=== PATIENT | female | born 2005 | race Caucasian/White ===

== ENCOUNTER 2025-02-24 21:12 | Emergency (ER) | payer OTHER, SELFPAY ==
[2025-02-24 21:16] VITALS: BP 163/92
--- NOTE | 2025-02-24 21:38 | ED.GENMED ---
History of Present Illness
General
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
Source: patient
Time Seen by Provider: 02/24/25 21:30
History of Present Illness
History of Present Illness:
19-year-old female presenting to the ER for evaluation for test of cure after being treated for chlamydia around 1 month ago. Patient asymptomatic now, notes that she will have intermittent pain with' her ovaries' when she has an orgasm. Patient
denies any current vaginal bleeding, vaginal discharge, vaginal irritation/itching, urinary symptoms or any other concerns. Patient reportedly completed the 7-day course of doxycycline.
Past History
Past History
ED Past Medical History: None
ED Past Surgical History: None
Social History
Tobacco: Non-smoker
Alcohol: None
Drug: None
Personal: Other (Engaged)
Living: with family
Review of Systems
Review of Systems
All Other Systems: ROS reviewed and negative except as documented in HPI and ROS
Phy Exam
Physical Exam
Physical Exam:
GENERAL: Alert , in no apparent distress
EYE: conjunctiva clear
Head: Normocephalic atraumatic
NECK: Supple,
ENT: mmm.
LUNGS: no acute respiratory distress
ABDOMEN: Soft, nontender, nondistended
NEUROLOGICAL: Alert and oriented
SKIN: Warm and dry, skin intact.
MUSCULOSKELETAL: well perfused.
PSYCH: Normal and appropriate interaction.
Scores
Heart Failure Risk
Heart Failure Risk Score: Not Applicable
Heart Score for Chest Pain Patients
STEMI patient?: Not applicable
Withdrawal Assessment of Alcohol
Withdrawal Assessment Completed?: Not applicable
Course
Orders/Labs/Results
Orders:
Orders
02/24/25 21:39
Test Result ONCE
02/24/25 21:44
Beta Hcg Urine Qualitative Screen [HCG, Urine Qualitative Screen] Urgent
Date Specimen was Collected: 02/24/25
Time Specimen was Collected: 21:41
Chlamydia/GC by PCR Urgent
KEYUR Source: Urine
Specimen Description:
Source:: URINE
Date Specimen was Collected: 02/24/25
Time Specimen was Collected: 21:41
Vital Signs
Initial and Last Documented VS:
Initial Vital Signs
Temp Pulse Resp BP Pulse Ox
98.7 F 100 15 163/92 98
02/24/25 21:16 02/24/25 21:16 02/24/25 21:16 02/24/25 21:16 02/24/25 21:16
Last Documented Vital Signs
Temp Pulse Resp BP Pulse Ox
98.7 F 100 15 163/92 98
02/24/25 21:16 02/24/25 21:16 02/24/25 21:16 02/24/25 21:16 02/24/25 21:16
MDM/Problems Addressed
Differential Diagnosis Includes:
Gonorrhea, chlamydia, other STI, no STI
MDM/Problems Addressed:
19-year-old female presented to the ER for evaluation of test of cure after being treated for chlamydia last month. Patient without symptoms. Will check urine for gonorrhea chlamydia. Patient is otherwise stable for discharge home. Aware of
return precautions to the ER. I did encourage close follow-up with [facility].
*Pulse Oximetry
Patient hypoxic: no
*Critical Care Note
Total Time (30-74mins, 75-104mins- exclusive of procedures): Not Applicable
ED Attending Note
-
Portions of this chart may have been created with voice recognition software.� Occasional wrong word or��sound alike� substitutions may have occurred due to the inherent limitations of voice recognition software.
Discharge Plan
Departure
Patient Disposition: Home (Routine Discharge)
Date of Disposition: 02/24/25
Time of Disposition: 21:38
Patient with high blood pressure during this ER visit?: No
Discharge Problem:
Screen for STD (sexually transmitted disease)
Instructions: Sexually transmitted infections - ED discharge instructions
Referrals:
NONE,* [Family Provider] -
Interventions
Interventions:
*Risk Screen - Suicide Last Done: 02/24/25 21:16
*General Assessment Last Done: 02/24/25 21:16
*Neglect/Abuse Screening Last Done: 02/24/25 21:16
*ED COVID-19 Vaccine History Last Done: 02/24/25 21:36
ED-Female Genitourinary Assessment Last Done: 02/24/25 21:36
Discharge Date and Time
Print Language: TELUGU
[2025-02-24 21:58] LABS: HCG, Urine Qualitative Screen Negative
== END 2025-02-24 22:02 | disposition home or self-care (01) ==
LOC: EMR 21:12
PROVIDERS: Physician Assistant Medical; EMERGENCY PHYSICIAN Student in an Organized Health Care Education/Training Program
DX: Z11.3 Encounter for screening for infections with a predominantly sexual mode of transmission (principal)
CPT/HCPCS: 99283; 81025; 87491; 87591

== ENCOUNTER 2025-05-01 14:37 | Emergency (ER) | payer OTHER, SELFPAY ==
[2025-05-01 14:51] VITALS: BP 133/78
[2025-05-01 15:35] LABS: Hematocrit 43.9 % (37.0-47.0); Hemoglobin 15.0 g/dL (12.0-16.0); Mean Corp Hgb Conc. 34.2 g/dL (33.0-37.0); Mean Corpuscular Volume 84.4 fL (81.0-99.0); Nucleated Red Blood Cells % 0 %; Platelet Count 423 10^3/uL (130-400); Red Cell Dist. Width 12.5 % (11.5-14.5)
[2025-05-01 15:44] LABS: HCG, Serum Qualitative Screen Negative
[2025-05-01 15:49] LABS: ALT (SGPT) 47 U/L (0-35); AST (SGOT) 31 U/L (14-36); Albumin 5.1 g/dl (3.5-5.0); Alkaline Phosphatase 88 U/L (38-126); Blood Urea Nitrogen 8 mg/dl (7-17); Calcium 10.3 mg/dl (8.4-10.2); Carbon Dioxide 24 mmol/L (22-30); Chloride 105 mmol/L (98-107); Glucose 107 mg/dl (70-99); Lipase 161 U/L (23-300); Potassium 4.3 mmol/L (3.5-5.1); Sodium 139 mmol/L (135-145); Total Protein 8.6 g/dl (6.3-8.2); eGFR > 60.00
--- NOTE | 2025-05-01 17:08 | ED.GENMED ---
History of Present Illness
<PERICO Huang - Last Filed: 05/01/25 18:12>
General
Chief Complaint: Abdominal Pain
Source: patient
Time Seen by Provider: 05/01/25 16:44
History of Present Illness
History of Present Illness:
Patient is a 19 y/o F with PMHx of anxiety who presents to ED from urgent care for diarrhea and lower abdominal pain x 1 month. Patient states she has had non bloody diarrhea at least once daily for the past month, with an increase in severity
today, with 5 bouts of diarrhea this morning. Patient describes diarrhea as green, and loose non watery or bloody. She has not taken any over the counter medications and has not been evaluated for this by another provider. Abdominal pain is rated
8/10, described as intermittent sharp pains that have been present for 1 month and differs from menstrual cramping. Patient admits to headache and nausea that began today. LMP 28 days ago, currently on mentrual cycle. Patient denies fever, weight
loss, weight gain, constipation, SOB, chest pain, dysuria, polyuria, myalgias or arthalgias.
Past History
<PERICO Huang - Last Filed: 05/01/25 18:12>
Past History
ED Past Medical History: None and Psychiatric (Anxiety)
ED Past Surgical History: None
Social History
Tobacco: Non-smoker
Alcohol: None
Drug: None
Personal: Other (Engaged)
Living: with family
Review of Systems
<PERICO Huang - Last Filed: 05/01/25 18:12>
Review of Systems
Allergies reviewed?: Yes
Other source history: family
Constitutional: Denies fever, weight gain, weight loss, fatigue or chills
Respiratory: Reports no symptoms
Cardiac: Reports no symptoms
ABD/GI: Reports abdominal pain (LLQ, RLQ), nausea and diarrhea; Denies vomiting, constipated, bloody stools or black stools
: Denies dysuria, frequency, urgency, dark urine or discharge
Musculoskeletal: Denies joint pain or muscle pain
Neurological: Reports headache; Denies dizzy or weakness
Phy Exam
<Nayeli Ríosfaina Farmer [facility] - Last Filed: 05/01/25 18:12>
General Physical Exam
General Presentation: well appearing and no apparent distress
General age: appears stated age
General Skin: warm and dry
General Habitus: obese
General Mental: alert
General Hydration: dry mucous membranes
Cardiovascular Exam
Cardiovascular Exam: regular rate/rhythm
Heart Sounds: normal
Pulmonary Exam
Pulmonary Exam: lungs clear and no wheezing
Gastrointestinal Exam
Gastrointestinal Exam: normal bowel sounds, soft and non distended
Palpation: left lower quadrant: Mild tenderness, right upper quadrant: Mild tenderness and right lower quadrant: Mild tenderness
Course
<Nayeli Freya Farmer [facility] - Last Filed: 05/01/25 18:12>
Orders/Labs/Results
Orders:
Orders
05/01/25 14:53
Test Result ONCE
05/01/25 15:09
Complete Blood Count/With Diff Urgent
Comprehensive Metabolic Panel Urgent
HCG, Serum Qualitative Screen Urgent
Lipase Urgent
05/01/25 18:16
Stool Culture Urgent
KEYUR Source: Feces/Stool
Specimen Description:
05/01/25 18:17
CT Abd/pel W Iv And Oral Contr Urgent
Comment:
Reason For Exam: abd pain w diarrhea. Family hx crohns dz
Iohexol [Omnipaque] See Protocol PO NOW STA
05/01/25 18:18
0.9% Sodium Chloride 1000 ml [Nss] 1,000 ml IV BOLUS
Pantoprazole [Protonix IV] 40 mg IV NOW STA
Abnormal Lab Results
05/01/25
15:09
Plt Count 423 H 10^3/uL
(130-400)
MPV 10.7 H fL
(7.4-10.4)
Absolute Lymphs (auto) 4.7 H 10^3/uL
(1.2-3.4)
Glucose 107 H mg/dl
(70-99)
Calcium 10.3 H mg/dl
(8.4-10.2)
ALT 47 H U/L
(0-35)
Total Protein 8.6 H g/dl
(6.3-8.2)
Albumin 5.1 H g/dl
(3.5-5.0)
05/01/25 15:09
05/01/25 15:09
Vital Signs
Initial and Last Documented VS:
Initial Vital Signs
Temp Pulse Resp BP Pulse Ox
98.2 F 76 16 133/78 98
05/01/25 14:51 05/01/25 14:51 05/01/25 14:51 05/01/25 14:51 05/01/25 14:51
Last Documented Vital Signs
Temp Pulse Resp BP Pulse Ox
98.2 F 69 16 118/79 100
05/01/25 14:51 05/01/25 17:35 05/01/25 17:35 05/01/25 17:35 05/01/25 17:35
<Levon Bran MD - Last Filed: 05/01/25 19:29>
Orders/Labs/Results
Orders:
Orders
05/01/25 14:53
Test Result ONCE
05/01/25 15:09
Complete Blood Count/With Diff Urgent
Comprehensive Metabolic Panel Urgent
HCG, Serum Qualitative Screen Urgent
Lipase Urgent
05/01/25 18:16
Stool Culture Urgent
KEYUR Source: Feces/Stool
Specimen Description:
05/01/25 18:17
CT Abd/pel W Iv And Oral Contr Urgent
Comment:
Reason For Exam: abd pain w diarrhea. Family hx crohns dz
Iohexol [Omnipaque] See Protocol PO NOW STA
05/01/25 18:18
0.9% Sodium Chloride 1000 ml [Nss] 1,000 ml IV BOLUS
Pantoprazole [Protonix IV] 40 mg IV NOW STA
Abnormal Lab Results
05/01/25
15:09
Plt Count 423 H 10^3/uL
(130-400)
MPV 10.7 H fL
(7.4-10.4)
Absolute Lymphs (auto) 4.7 H 10^3/uL
(1.2-3.4)
Glucose 107 H mg/dl
(70-99)
Calcium 10.3 H mg/dl
(8.4-10.2)
ALT 47 H U/L
(0-35)
Total Protein 8.6 H g/dl
(6.3-8.2)
Albumin 5.1 H g/dl
(3.5-5.0)
05/01/25 15:09
05/01/25 15:09
Vital Signs
Initial and Last Documented VS:
Initial Vital Signs
Temp Pulse Resp BP Pulse Ox
98.2 F 76 16 133/78 98
05/01/25 14:51 05/01/25 14:51 05/01/25 14:51 05/01/25 14:51 05/01/25 14:51
Last Documented Vital Signs
Temp Pulse Resp BP Pulse Ox
98.2 F 69 16 118/79 100
05/01/25 14:51 05/01/25 17:35 05/01/25 17:35 05/01/25 17:35 05/01/25 17:35
<Alexandria Wood, DO - Last Filed: 05/01/25 21:25>
Orders/Labs/Results
Orders:
Orders
05/01/25 14:53
Test Result ONCE
05/01/25 15:09
Complete Blood Count/With Diff Urgent
Comprehensive Metabolic Panel Urgent
HCG, Serum Qualitative Screen Urgent
Lipase Urgent
05/01/25 18:16
Stool Culture Urgent
KEYUR Source: Feces/Stool
Specimen Description:
05/01/25 18:17
CT Abd/pel W Iv And Oral Contr Urgent
Comment:
Reason For Exam: abd pain w diarrhea. Family hx crohns dz
Iohexol [Omnipaque] See Protocol PO NOW STA
05/01/25 18:18
0.9% Sodium Chloride 1000 ml [Nss] 1,000 ml IV BOLUS
Pantoprazole [Protonix IV] 40 mg IV NOW STA
Abnormal Lab Results
05/01/25
15:09
Plt Count 423 H 10^3/uL
(130-400)
MPV 10.7 H fL
(7.4-10.4)
Absolute Lymphs (auto) 4.7 H 10^3/uL
(1.2-3.4)
Glucose 107 H mg/dl
(70-99)
Calcium 10.3 H mg/dl
(8.4-10.2)
ALT 47 H U/L
(0-35)
Total Protein 8.6 H g/dl
(6.3-8.2)
Albumin 5.1 H g/dl
(3.5-5.0)
05/01/25 15:09
05/01/25 15:09
Vital Signs
Initial and Last Documented VS:
Initial Vital Signs
Temp Pulse Resp BP Pulse Ox
98.2 F 76 16 133/78 98
05/01/25 14:51 05/01/25 14:51 05/01/25 14:51 05/01/25 14:51 05/01/25 14:51
Last Documented Vital Signs
Temp Pulse Resp BP Pulse Ox
98.2 F 69 16 118/79 100
05/01/25 14:51 05/01/25 17:35 05/01/25 17:35 05/01/25 17:35 05/01/25 17:35
<Nayeli Farmer [facility] - Last Filed: 05/01/25 18:12>
MDM/Problems Addressed
Differential Diagnosis Includes:
Differential Diagnosis includes but is not limited to:
1. IBS
2. Ulcerative colitis
3. Chron's disease
4. Celiac disease
5. Lactose intolerance
MDM/Problems Addressed:
1.Diarrhea and lower abdominal pain x [address] abdominal/pelvis for evaluation of inflammatory bowel etiology
Start Imodium (loperamide hydrochloride)2 mg- 2 capsule after first unformed bowel movement, take additional 2mg - one capsule after additional unformed bowel movement
Consider stool studies
Refer to Gastroenterology for evaluation and additional diagnostics
<Nayeli Farmer [facility] - Last Filed: 05/01/25 18:12>
*Pulse Oximetry
SaO2: 98
Oxygen Mode of Delivery: Room air
Patient hypoxic: no
*Critical Care Note
Total Time (30-74mins, 75-104mins- exclusive of procedures): Not Applicable
<Alexandria Wood DO - Last Filed: 05/01/25 21:25>
Update Note
Update Note:
Attending Sign Out Note (Alexandria Wood DO)
20:30 -patient signed out by prior physician, 19-year-old female presenting with diarrhea for the past month with lower abdominal discomfort. Hemodynamically stable in the emergency department, noted to have mild tenderness to the lower abdomen.
Laboratory analysis unremarkable. Pending CT abdomen and pelvis.
21:20 -CT without significant acute pathology. There is mention of some renal cysts, diverticulosis and mild mesenteric adenitis. Patient otherwise remained stable. Ultimately feel stable for discharge with outpatient plan for PCP follow-up and
potential GI follow-up. Return precautions discussed and patient verbalized understanding
ED Attending Note
<PERICO Huang - Last Filed: 05/01/25 18:12>
-
Portions of this chart may have been created with voice recognition software.� Occasional wrong word or��sound alike� substitutions may have occurred due to the inherent limitations of voice recognition software.
<Levon Bran MD - Last Filed: 05/01/25 19:29>
ED Attending Note
Patient seen and examined by attending physician: Yes
ED Attending Note:
Patient presents to ED secondary to worsening lower abdominal pain associated with increased number of diarrheal episodes over the past 1 month. Abdominal pain, described as sharp/crampy, diffuse, without any alleviating or exacerbating factors.
Denies fever or chills. Denies loss of appetite. Denies trauma. Denies recent travel. Denies recent change in diet. Denies previous history of similar symptoms. There is family history of Crohn's disease.
Physical Exam
General: mild painful distress, not acutely ill. afebrile
Head: nc/at. eomi
Neck: supple. no meningeal signs.
Heart: s1/s2 regular rate and rhythm
Lungs: no acute respiratory distress. clear bilaterally
Abdomen: normal bowel sounds. mild lower abdominal tenderness to palpation
Neuro: alert and oriented x 3. no focal neurological deficits
Skin: no rash
Psychiatric: well kept. interactive and cooperative
Extremities: no edema. no calf tenderness.
Blood work reviewed, within normal limits. However, in light of ongoing symptoms, with family history of Crohn's disease, will obtain CT abdomen pelvis at this time.
Discharge Plan
Departure
Patient with high blood pressure during this ER visit?: No
Condition: Good
Discharge Problem:
Abdominal pain
Instructions: Abdominal Pain, Diarrhea in teens and adults
Referrals:
Jocelyn Arthur DO [Family Provider]
Derek Villarreal DO [Active, Gastroenterology]
Activity Restrictions/Additional Instructions:
You were seen in the emergency department for diarrhea and abdominal pain
You were found to have reassuring laboratory analysis and CT of your abdomen. There is mention of some incidental findings including renal cysts which should be followed up with your primary care doctor. We also recommend following up with a GI
doctor.
Please follow-up closely with your primary care physician.
Return to the emergency department for any worsening of your symptoms, or any development of chest pain, difficulty breathing, abdominal pain with persistent vomiting and inability to tolerate food or liquid by mouth (concern for dehydration),
weakness, headache or confusion, fever greater than 100.4, or any additional symptoms that are concerning to you.
Thank you for choosing [facility].
Interventions
Interventions:
*Risk Screen - Suicide Last Done: 05/01/25 17:29
*General Assessment Last Done: 05/01/25 17:29
*Neglect/Abuse Screening Last Done: 05/01/25 17:29
*ED- Fall Risk Assessment Last Done: 05/01/25 17:29
*ED COVID-19 Vaccine History Last Done: 05/01/25 17:29
VE-Ejjzie-Yizhxlnjvl Assessment Last Done: 05/01/25 17:38
Discharge Date and Time
Print Language: TURKISH
[2025-05-01 17:22] VITALS: BMI 41.9
--- NOTE | 2025-05-01 17:30 | EDRN ---
Pt has been having bilateral lower abdominal pain for a month but in last 2 days has been worse. Pt states she has been having diarrhea for a month and went 4 times today. Pt has nausea, not vomiting. Appetite decreased. Pt has a headache. Pt having
pain where she had DVT in R arm and also high WBCs.
[2025-05-01 17:35] VITALS: BP 118/79
--- NOTE | 2025-05-01 18:12 | EDRN ---
Dr. Bran in room w/pt and moni at this time.
[2025-05-01] MEDS: OMNIPAQUE 50 ML PO (18:27)
--- NOTE | 2025-05-01 18:34 | EDRN ---
Josh RN attemtping IV access at this time. R arm reported by pt as having a blood clot in it and still having pain.
--- NOTE | 2025-05-01 18:37 | EDRN ---
Josh RN unable to get IV access at this time. Will TT VAT RN now.
--- NOTE | 2025-05-01 18:43 | EDRN ---
Pt given a urine spec kit and stool spec kit at this time. Pt is going to BR to void at this time.
[2025-05-01] MEDS: PROTONIX IV 40 MG IV (19:23)
[2025-05-01] MEDS: NSS 1000 IV (19:24)
== END 2025-05-01 22:10 | disposition home or self-care (01) ==
LOC: EMR 14:37
PROVIDERS: EMERGENCY PHYSICIAN Emergency Medicine; FAMILY PHYSICIAN Family Medicine
DX: R10.30 Lower abdominal pain, unspecified (principal); I88.0 Nonspecific mesenteric lymphadenitis
CPT/HCPCS: 96374; 96361; 99284; 74177; 80053; 83690; 84703; 85025; Q9967

== ENCOUNTER 2025-06-17 22:09 | Emergency (ER) | payer OTHER, SELFPAY ==
[2025-06-17 22:15] VITALS: BP 152/92
[2025-06-17 22:45] LABS: Hematocrit 40.1 % (37.0-47.0); Hemoglobin 13.9 g/dL (12.0-16.0); Mean Corp Hgb Conc. 34.7 g/dL (33.0-37.0); Mean Corpuscular Volume 84.2 fL (81.0-99.0); Nucleated Red Blood Cells % 0 %; Platelet Count 394 10^3/uL (130-400); Red Cell Dist. Width 12.8 % (11.5-14.5)
[2025-06-17 23:02] LABS: HCG, Serum Qualitative Screen Negative
[2025-06-17 23:14] LABS: ALT (SGPT) 76 U/L (0-35); AST (SGOT) 38 U/L (14-36); Albumin 4.5 g/dl (3.5-5.0); Alkaline Phosphatase 80 U/L (38-126); Blood Urea Nitrogen 11 mg/dl (7-17); Calcium 9.6 mg/dl (8.4-10.2); Carbon Dioxide 23 mmol/L (22-30); Chloride 108 mmol/L (98-107); Glucose 99 mg/dl (70-99); Potassium 4.1 mmol/L (3.5-5.1); Sodium 141 mmol/L (135-145); Total Protein 7.6 g/dl (6.3-8.2); eGFR > 60.00
[2025-06-18] MEDS: TORADOL 15 MG IV (00:53)
[2025-06-18] MEDS: NSS 1000 IV (00:58)
[2025-06-18 01:15] LABS: Lipase 207 U/L (23-300)
--- NOTE | 2025-06-18 01:42 | ED.GENMED ---
History of Present Illness
General
Chief Complaint: Abdominal Pain
Source: patient and spouse
Exam Limitations: none
Time Seen by Provider: 06/17/25 23:20
Nursing documentation reviewed up to this point in time: agreed with
History of Present Illness
History of Present Illness:
19-year-old female presenting to the emergency department today with concerns of ongoing abdominal pain and diarrhea that is been ongoing for over a year has been seen multiple times in multiple ERs with workups without specific answers. Does
follow-up with a GI doctor has a colonoscopy scheduled for 1 month. Claims that symptoms have been persisting and she 'had enough' and prompted coming to the ER today. Denies any chest pain shortness of breath does have nausea some intermittent
vomiting
Past History
Past History
ED Past Medical History: None and Psychiatric (Anxiety)
ED Past Surgical History: None
Social History
Tobacco: Non-smoker
Alcohol: None
Drug: None
Personal: Other (Engaged)
Living: with family
Review of Systems
Review of Systems
Allergies reviewed?: Yes
All Other Systems: ROS reviewed and negative except as documented in HPI and ROS
Phy Exam
Physical Exam
Physical Exam:
GENERAL: Alert , in no apparent distress
EYE: pupils equal and reactive
NECK: Supple, no significant adenopathy.
ENT: o/p clr, mmm.
CARDIAC: Regular rate and rhythm .
LUNGS: Clear breath sounds bilaterally, no acute respiratory distress, no wheezes/rales/rhonchi
ABDOMEN: Vague sporadic abdominal pain no specific guarding or peritoneal signs
NEUROLOGICAL: Alert and oriented, no focal neuro deficits
SKIN: Warm and dry, skin intact.
MUSCULOSKELETAL: No edema, well perfused.
PSYCH: Normal and appropriate interaction.
Course
Orders/Labs/Results
Orders:
Orders
06/17/25 22:21
Test Result ONCE
06/17/25 22:40
Complete Blood Count/With Diff Urgent
Comprehensive Metabolic Panel Urgent
HCG, Serum Qualitative Screen Urgent
Lipase Urgent
Comment: ADD ON
06/18/25 00:44
CT Abd/Pel (IV only)-DH only Urgent
Comment:
Reason For Exam: llq pain
Dicyclomine HCl [Bentyl] 20 mg IM NOW STA
Ketorolac [Toradol] 15 mg IV NOW STA
06/18/25 00:45
Add On- LAB Urgent
Tests Added?: lipase
0.9% Sodium Chloride 1000 ml [Nss] 1,000 ml IV BOLUS
Abnormal Lab Results
06/17/25
22:40
WBC 13.1 H 10^3/uL
(4.8-10.8)
Abs Immat Gran (auto) 0.1 H 10^3/uL
(0-0.05)
Absolute Lymphs (auto) 5.8 H 10^3/uL
(1.2-3.4)
Absolute Monos (auto) 0.7 H 10^3/uL
(0.1-0.6)
Chloride 108 H mmol/L
(98-107)
AST 38 H U/L
(14-36)
ALT 76 H U/L
(0-35)
06/17/25 22:40
06/17/25 22:40
Vital Signs
Initial and Last Documented VS:
Initial Vital Signs
Temp Pulse Resp BP Pulse Ox
97.7 F 115 20 152/92 98
06/17/25 22:15 06/17/25 22:15 06/17/25 22:15 06/17/25 22:15 06/17/25 22:15
Last Documented Vital Signs
Temp Pulse Resp BP Pulse Ox
98.5 F 115 20 152/92 98
06/18/25 01:04 06/17/25 22:15 06/17/25 22:15 06/17/25 22:15 06/18/25 01:43
MDM/Problems Addressed
MDM/Problems Addressed:
19-year-old female presenting to the emergency department today with concerns of abdominal pain diarrhea over the past year has been assessed for this multiple times in the ER without specific diagnosis. Is following up with GI and has a scheduled
colonoscopy in 1 month. She does not take any daily medications for this. No abnormalities on CT scan. Patient in no distress stable for close outpatient follow-up. Return precautions given.
*Pulse Oximetry
SaO2: 98
Oxygen Mode of Delivery: Room air
Patient hypoxic: no (98)
*Critical Care Note
Total Time (30-74mins, 75-104mins- exclusive of procedures): Not Applicable
ED Attending Note
-
Portions of this chart may have been created with voice recognition software.� Occasional wrong word or��sound alike� substitutions may have occurred due to the inherent limitations of voice recognition software.
Discharge Plan
Departure
Patient Disposition: Home (Routine Discharge)
Date of Disposition: 06/18/25
Time of Disposition: 02:32
Patient with high blood pressure during this ER visit?: No
Condition: Good
Covid-19: Not Applicable
Discharge Problem:
Abdominal pain
Instructions: Abdominal Pain
Prescriptions:
New
dicyclomine 20 mg tablet
20 mg PO QID PRN (Reason: abdominal pain) Qty: 10 0RF
sucralfate [Carafate] 100 mg/mL suspension
10 ml PO BID Qty: 200 0RF
Referrals:
Jocelyn Arthur DO [Family Provider]
Activity Restrictions/Additional Instructions:
You came to the emergency department today with concerns of abdominal pain. Please follow closely with your GI doctor. Return for any worsening, new or concerning symptoms.
Interventions
Interventions:
*Risk Screen - Suicide Last Done: 06/17/25 22:15
*General Assessment Last Done: 06/17/25 23:20
*Neglect/Abuse Screening Last Done: 06/17/25 22:15
*ED- Fall Risk Assessment Last Done: 06/17/25 23:20
*ED COVID-19 Vaccine History Last Done: 06/17/25 23:20
WL-Nbalwt-Zudohvypmu Assessment Last Done: 06/17/25 23:27
Discharge Date and Time
Print Language: [place]
[2025-06-18 02:42] VITALS: BP 134/73
== END 2025-06-18 02:48 | disposition home or self-care (01) ==
LOC: EMR 22:09
PROVIDERS: Emergency Medicine; EMERGENCY PHYSICIAN Emergency Medicine; FAMILY PHYSICIAN Family Medicine
DX: R10.9 Unspecified abdominal pain (principal)
CPT/HCPCS: 99284; 96374; 96361; 74177; 80053; 83690; 84703; 85025; Q9967